=== PATIENT | female | born 1945 | race Hispanic/Latino ===

== ENCOUNTER 2017-06-27 16:50 | Observation (INO) | payer MEDICARE, MEDICAID ==
[~2017-06-27] VITALS: Ht 144.8 cm; Wt 57.2 kg
[2017-06-27 16:50] VITALS: BP 175/61
--- NOTE | 2017-06-27 16:50 | NUR ---
PT ARRIVED VIA TRANSPORT TO ICU BED 2 VIA STRETCHER. PT A&OX3 ABLE TO MAKE ALL NEEDS KNOWN. SR ON TELEMETRY, AFEBRILE. LS CLEAR THROUGH. PT STATES LAST BM 06/27/17, LG SOFT/BROWN. BSX 4 ACTIVE. SKIN CDI. PT STATES HX OF DIZZINESS EPISODES, LAST 1 WEEK AGO. THEN, THIS AM STARTED AGAIN. PT STATES ALLERGY TO CODIENE AND PCN. PT ORIENTED TO CALL LIGHT & ROOM. BED IN LOWEST POSITION, CALL LIGHT IN REACH.
--- NOTE | 2017-06-27 17:25 | NUR ---
DIETARY ORDERS PLACED, FAMILY AT BEDSIDE.
[2017-06-27 18:30] VITALS: BP 142/57
[2017-06-27 18:45] VITALS: BP 126/64
[2017-06-27 19:00] VITALS: BP 132/62
--- NOTE | 2017-06-27 19:30 | NUR ---
PT RESTING IN BED AWAKE. FAMILY IN ROOM. PT IS ALERT AND ORIENTED X3. PERRLA. RESP ARE EVEN AND UNLABORED. NO DISTRESS NOTED. LUNGS ARE CLEAR. HR REGULAR. SR ON MONITOR. PT REPORTS DIZZINESS UPON STANDING. ORTHOSTATIC BPS OBTAINED. LYING BP 138/59, SITTIGN BP 142/53, STANDING BP 141/61. PT DID BECOME UNSTEADY UPON STANDING AND REPORTED DIZZINESS. NO EDEMA NOTED. PULSES PALPABLE THROUGHOUT. BS ACTIVE. #20 RAC SALINE LOCKED. NO REDNESS OT EDEMA NOTED. CALL LIGHT IN REACH. WILL CONTINUE TO MONITOR
[2017-06-27 21:00] VITALS: BP 117/53
--- NOTE | 2017-06-27 22:00 | NUR ---
PT RESTING IN BED WITH EYES CLOSED. RESP ARE EVEN AND UNLABORED. NO DISTRESS NOTED. SR ON MONITOR AND NOTED SOME SB. CALL LIGHT IN REACH. WILL CONTINUE TO WIN
[2017-06-27 23:00] VITALS: BP 91/39
--- NOTE | 2017-06-28 | NUR ---
PT RESTING IN BED WITH EYES CLOSED. RESP ARE EVEN AND UNLABORED. NO DISTRESS NOTED. REAMINS SB TO SR ON MONITOR. NOTED BP 92/49. CALL LIGHT IN REACH WILL CONTINUE TO [place]
--- NOTE | 2017-06-28 00:08 | NUR ---
LAB INTO [facility]RAW [facility]
[2017-06-28 01:00] VITALS: BP 103/41
--- NOTE | 2017-06-28 02:00 | NUR ---
PT RESTING IN BED WITH EYES CLOSED. RESP ARE EVEN AND UNLABORED. NO DISTRESS NOTED. REMAINS SB TO SR ON MONITOR. CALL LIGHT IN REACH. WILL CONTINUE TO MONITOR
[2017-06-28 03:00] VITALS: BP 101/49
--- NOTE | 2017-06-28 04:50 | NUR ---
LAB INTO DRAW [facility] LABS
[2017-06-28 05:00] VITALS: BP 116/65
--- NOTE | 2017-06-28 06:06 | NUR ---
PT RESTING IN BED WITH EYES CLOSED. RESP ARE EVEN AND UNLABORED. NO DISTRESS NOTED. REMAINS SB TO SR ON MONITOR. WILL CONTINUE TO MONITOR. CALL LIGHT IN REACH.
[2017-06-28 06:20] LABS: ANION GAP 17 (6-22 (CALC)); BUN 17 mg/dL (8-23); BUN/CREATININE RATIO 23 (12-20 (CALC)); CALCULATED LDLCHOLESTEROL 98 mg/dL (62-129 (CALC)); CARBON DIOXIDE 23 mmol/l (22-30); CHLORIDE 106 mmol/l (95-108); CHOLESTEROL HDL RATIO 3.4 (<4.4 (CALC)); CREATININE 0.7 mg/dL (0.5-1.0); GFR > 60 ML/MIN (>=60 (CALC)); GFR FOR AFR.AMER. > 60 ML/MIN (>=60 (CALC)); HDL CHOLESTEROL 53 mg/dL (>=40); MAGNESIUM 1.8 mg/dL (1.6-2.3); POTASSIUM 4.2 mmol/l (3.5-5.1); SODIUM 141 mmol/l (137-146); TOTAL CHOLESTEROL 182 mg/dl (0-199); TOTAL TRIGLYCERIDES 153 mg/dl (30-149); VLDL CHOLESTROL 31 mg/dl (0-48 (CALC))
--- NOTE | 2017-06-28 07:15 | NUR ---
PT LAYING IN THE BED RESTING WITH EYES OPENED, A & O X3, PERRL, PT VERBALIZES NO COMPLAINTS, PT DENIES ANY DIZZINESS OR NAUSEA, HR 50, RESP. 18, BP 140/54, O2 97% ON RA, LUNG SOUNDS CLEAR IN ALL TORREZ, STRONG RADIAL AND PEDAL PULSES, ACTIVE BOWEL SOUNDS, 20G RAC IV, SALINE LOCKED, AM ASSESSMENT COMPLETE, SEE INTERVENTIONS, SAFETY MEASURES REINFORCED, CALL FONG WITHIN REACH
--- NOTE | 2017-06-28 07:35 | NUR ---
SETUP ASSISTANCE PROVIDED WITH JOEL ALLAN
[2017-06-28 08:00] VITALS: BP 140/54
--- NOTE | 2017-06-28 08:10 | NUR ---
DR WING AT BEDSIDE DISCUSSING PLAN OF CARE
--- NOTE | 2017-06-28 08:52 | NUR ---
UMBRELLA REPAIRER AT BEDSIDE REVIEWING PT'S HOME MEDICATIONS
[2017-06-28] MEDS ORDERED: IRBESARTAN150 MG PO (08:58)
[2017-06-28] MEDS ORDERED: LEVOTHYROXIN88 MC1 PO (08:59)
[2017-06-28] MEDS ORDERED: METO25TAB PO (09:00)
[2017-06-28] MEDS ORDERED: ALENDRONATE70 MG PO (09:00)
[2017-06-28] MEDS ORDERED: METFORMIN500 M2 PO (09:02)
[2017-06-28] MEDS ORDERED: METFORMIN500 MG PO (09:03)
[2017-06-28] MEDS ORDERED: ATORVASTATIN CA10 MG PO (09:05)
[2017-06-28] MEDS ORDERED: ANTIVERT PO (09:05)
[2017-06-28] MEDS ORDERED: ASPIRIN 8181 MG PO (09:11)
[2017-06-28] MEDS ORDERED: VITAMIN D H1000 UNIT PO (09:14)
--- NOTE | 2017-06-28 09:45 | NUR ---
VISITORS AT BEDSIDE
--- NOTE | 2017-06-28 09:46 | NUR ---
MED LIST FAXED TO DR WING'S OFFICE FOR MD TO REVIEW, SPOKE TO STEVE TO VERIFY FAX WAS RECEIVED
--- NOTE | 2017-06-28 09:54 | NUR ---
DR SINHA AT BEDSIDE DISCUSSING PLAN OF CARE
[2017-06-28 10:00] VITALS: BP 124/45
--- NOTE | 2017-06-28 10:30 | NUR ---
PT SITTING UP IN THE RECLINER, TOLERATING WELL, VERBALIZES NO COMPLAINTS, CALL FONG WITHIN REACH
--- NOTE | 2017-06-28 10:49 | NUR ---
FAMILY AT BEDSIDE
--- NOTE | 2017-06-28 11:30 | NUR ---
SETUP ASSISTANCE PROVIDED WITH LUNCH TRAY
[2017-06-28 12:00] VITALS: BP 143/64
--- NOTE | 2017-06-28 13:38 | NUR ---
20G RAC IV REMOVED, CATH INTACT, NO REDNESS AT SITE
--- NOTE | 2017-06-28 13:46 | NUR ---
Discharge instructions given. Patient verbalizes understanding of same. Discharged in stable condition via Wheelchair to Home with family. All belongings sent with pt.
== END 2017-06-28 13:45 | disposition home or self-care (01) ==
LOC: ICU 16:50
PROVIDERS: ADMIT Internal Medicine; ATTEND Internal Medicine
DX: R55 Syncope and collapse (principal); I25.10 Atherosclerotic heart disease of native coronary artery without angina pectoris; E11.9 Type 2 diabetes mellitus without complications; E78.5 Hyperlipidemia, unspecified; I11.9 Hypertensive heart disease without heart failure; Z79.84 Long term (current) use of oral hypoglycemic drugs; Z95.1 Presence of aortocoronary bypass graft; Z79.899 Other long term (current) drug therapy; R94.31 Abnormal electrocardiogram [ECG] [EKG]

== ENCOUNTER → 2017-11-11 | Outpatient (REF) | payer MEDICARE ==
[~2017-11-11] MED LIST: ALENDRONATE70 MG PO; ANTIVERT PO; ASPIRIN 8181 MG PO; ATORVASTATIN CA10 MG PO; IRBESARTAN150 MG PO; LEVOTHYROXIN88 MC1 PO; METFORMIN500 M2 PO; METFORMIN500 MG PO; METO25TAB PO; VITAMIN D H1000 UNIT PO
== END | disposition home or self-care (01) ==
LOC: MRI 07:20
PROVIDERS: ATTEND Podiatrist
DX: M79.675 Pain in left toe(s) (principal)